=== PATIENT | male | born 1960 | race Caucasian/White ===

== ENCOUNTER 2024-12-18 10:48 | Day surgery (SDC) | payer BC, SELFPAY ==
[2024-12-18 11:00] VITALS: BP 152/86; PULSE 76; RESP 18; TEMP 37; O2SAT 97
[2024-12-18 11:04] VITALS: BMI 34.4
[2024-12-18] MEDS: sodium chloride 0.9% 1,000 ML 30 ML IV (11:18)
--- NOTE | 2024-12-18 11:40 | ANES.PREANE2 ---
Pre-Anesthetic Assessment Height/Weight: Height 5 ft 10 in Weight 240 lb Temp Pulse Resp BP Pulse Ox O2 Del Method 98.6 F 76 18 152/86 97 Room Air 12/18/24 11:00 12/18/24 11:00 12/18/24 11:00 12/18/24 11:00 12/18/24 11:00 12/18/24 11:00 Preop Diagnosis: Screening colonoscopy Operation Date: 12/18/24 11:45 Proposed Procedures p Colonoscopy 29918, Go121, Z80.0 , Z86.0100(Not Applicable) - Augusto Rubio DO Was Beta Tera taken within 24 hours: N/A Was Clonidine taken within 24 hours: N/A Last intake: Intake Last Liquid Date 12/17/24 Last Liquid Time 22:00 Last Solid Date 12/16/24 Last Solid Time 20:00 Social No alcohol and No tobacco Exam alert, oriented x 3, clear to auscultation bilaterally and regular rate & rhythm Airway Submandibular: within normal limits Cervical ROM: within normal limits Mallampati: Class III Dentition: full Anesthetic Plan ASA status: 2 Anesthesia: MAC Other: No prior issues with anesthesia Completed bowel prep History of hypertension on losartan. Preop BP 152/86 Denies any pulmonary issues BMI 34 METs greater than 4 Plan for MAC anesthetic Medications/Allergies Home Medications Medication Instructions Recorded Confirmed Last Taken Type losartan 25 mg tablet 25 mg PO DAILY 12/16/24 12/16/24 12/17/24 07:00 History multivitamin 1 tab PO DAILY 12/16/24 12/16/24 12/17/24 07:00 History tamsulosin 0.4 mg capsule 0.4 mg PO DAILY 12/16/24 12/16/24 12/17/24 07:00 History Allergies Allergy/AdvReac Type Severity Reaction Status Date / Time No Known Allergies Allergy Unverified 12/18/24 11:02 Current Medications Generic Name Dose Route Start Last Admin Trade Name Freq PRN Reason Stop Dose Admin Sodium Chloride 1,000 mls @ 30 mls/hr 12/18/24 11:00 12/18/24 11:18 Sodium Chloride 0.9% IV 30 mls/hr .Q24H DAR Administration PFSH Anesthesia Medical History (Updated 11/25/24 @ 09:53 by Augusto Rubio DO) History of colon polyps Family history of colon cancer Social History Smoking and tobacco/nicotine status: former use of tobacco/nicotine (quit 2001) Data Anesthesia Cardiac Studies: No Data to Display
--- NOTE | 2024-12-18 12:14 | W.PM.OPSUD ---
Surgery/Procedure H&P Update DATE OF PROCEDURE: December 18, 2024 DATE H&P PERFORMED: 11/25/24 H&P UPDATE INFORMATION: I have reviewed H&P completed within last 30 days, I have examined patient prior to procedure and No changes to prior documentation PREOP DIAGNOSIS: Screening colonoscopy PLANNED PROCEDURE: Operation Date: 12/18/24 11:45 Proposed Procedures p Colonoscopy 73420, Go121, Z80.0 , Z86.0100(Not Applicable) - Augusto Rubio DO
[2024-12-18 12:28] VITALS: BP 145/85; PULSE 60; RESP 18; TEMP 36.1; O2SAT 97
[2024-12-18 12:33] VITALS: BP 130/95; PULSE 65; RESP 18; O2SAT 96
--- NOTE | 2024-12-18 12:40 | ANE.PACU2 ---
Inpatient post-anesthesia follow up: Airway intact: Yes Vital signs: Temperature 97.0 F Pulse Rate 65 Respiratory Rate 18 Blood Pressure 130/95 Pulse Oximetry 96 Oxygen Delivery Me thod Room Air Oxygen Flow Rate Fraction of Inspir ed Oxygen Hydration adequate: Yes Nausea and vomiting: No Pain level: 1 Mental status: Baseline
[2024-12-18 12:43] VITALS: BP 138/84; PULSE 65; RESP 18; O2SAT 95
== END 2024-12-18 13:00 | disposition home or self-care (01) ==
PROVIDERS: PCP Nurse Practitioner Family; Visit Provider Surgery
PROC: 0DJD8ZZ Inspection of Lower Intestinal Tract, Via Natural or Artificial Opening Endoscopic (ICD-10-PCS; CPT 45378; principal; 2024-12-18 11:45)
DX: Z12.11 Encounter for screening for malignant neoplasm of colon (principal); K57.30 Diverticulosis of large intestine without perforation or abscess without bleeding; K64.1 Second degree hemorrhoids; I10 Essential (primary) hypertension; Z80.0 Family history of malignant neoplasm of digestive organs
CPT/HCPCS: 45378; J2704; J7030

== ENCOUNTER 2024-12-26 09:25 | Outpatient (CLI) | payer BC, SELFPAY ==
--- NOTE | 2024-12-26 09:36 | US_ITS ---
WS: [id number] BILATERAL 3D TOMOSYNTHESIS DIGITAL DIAGNOSTIC MAMMOGRAPHY WITH CAD CLINICAL INFORMATION: lump in breast HISTORY: Palpable lumps COMPARISON: None available TECHNIQUE: Bilateral CC, MLO, and ML views. FINDINGS: Scattered fibroglandular densities bilaterally. Palpable markers bilateral breasts. Normal underlying parenchymal tissue. Ultrasound of these areas pending. No other suspicious abnormalities. ULTRASOUND BREAST BILATERAL TECHNIQUE: Ultrasound bilateral breast focused area of concern. CLINICAL INFORMATION: lump in breast FINDINGS: RIGHT BREAST: No suspicious findings in the area of concern RIGHT breast 6 o'clock position patient d irected. LEFT BREAST: Incidental lipoma in the area of concern LEFT breast measuring approximately 2.8 x 0.6 c m at the 3 o'clock position patient directed. This is a benign appearance. No other suspicious findin gs. US/US breast BI limited* [id number] IMPRESSION: DENSITY: There are scattered areas of fibroglandular density. BI-RADS: 2 - Benign. FOLLOW UP: See Report
--- NOTE | 2024-12-26 10:00 | MM_ITS ---
WS: [id number] BILATERAL 3D TOMOSYNTHESIS DIGITAL DIAGNOSTIC MAMMOGRAPHY WITH CAD CLINICAL INFORMATION: lump in breast HISTORY: Palpable lumps COMPARISON: None available TECHNIQUE: Bilateral CC, MLO, and ML views. FINDINGS: Scattered fibroglandular densities bilaterally. Palpable markers bilateral breasts. Normal underlying parenchymal tissue. Ultrasound of these areas pending. No other suspicious abnormalities. ULTRASOUND BREAST BILATERAL TECHNIQUE: Ultrasound bilateral breast focused area of concern. CLINICAL INFORMATION: lump in breast FINDINGS: RIGHT BREAST: No suspicious findings in the area of concern RIGHT breast 6 o'clock position patient d irected. LEFT BREAST: Incidental lipoma in the area of concern LEFT breast measuring approximately 2.8 x 0.6 c m at the 3 o'clock position patient directed. This is a benign appearance. No other suspicious findin gs. MM/MM diag BI tomosynthesis [id number] IMPRESSION: DENSITY: There are scattered areas of fibroglandular density. BI-RADS: 2 - Benign. FOLLOW UP: See Report
== END 2024-12-26 09:26 | disposition home or self-care (01) ==
LOC: RAD 09:28
PROVIDERS: PCP Nurse Practitioner Family; Visit Provider Surgery
DX: N63.10 Unspecified lump in the right breast, unspecified quadrant (principal); N63.20 Unspecified lump in the left breast, unspecified quadrant; R92.323 Mammographic fibroglandular density, bilateral breasts; D17.79 Benign lipomatous neoplasm of other sites
CPT/HCPCS: 76642; 77062; G0279